=== PATIENT | male | born 1975 | race Caucasian/White ===

== ENCOUNTER 2018-04-15 05:30 | Emergency (ER) | payer MEDICAID ==
[2018-04-15] MEDS: DIPHENHYDRAMINE 25 MG CAP PO (06:10)
[2018-04-15] MEDS: KETOROLAC 15 MG INJ IM (06:11)
[2018-04-15] MEDS: METOCLOPRAMIDE 10 MG TAB PO (06:28)
== END 2018-04-15 06:35 | disposition home or self-care (01) ==
LOC: E/R 05:30
DX: S05.10XA Contusion of eyeball and orbital tissues, unspecified eye, initial encounter (principal); G44.319 Acute post-traumatic headache, not intractable; F10.10 Alcohol abuse, uncomplicated; S00.03XA Contusion of scalp, initial encounter; S06.0X0A Concussion without loss of consciousness, initial encounter; W01.198A Fall on same level from slipping, tripping and stumbling with subsequent striking against other object, initial encounter; Y92.9 Unspecified place or not applicable
CPT/HCPCS: 96372; 99284-25